=== PATIENT | female | born 1965 | race Caucasian/White ===

== ENCOUNTER → 2018-03-06 | Outpatient (CLI) | payer OTHER | LOC: CIMAGING 15:59 | PROVIDERS: ATTEND Obstetrics & Gynecology | DX: N94.6 Dysmenorrhea, unspecified (principal); N94.89 Other specified conditions associated with female genital organs and menstrual cycle; N88.8 Other specified noninflammatory disorders of cervix uteri; Z97.5 Presence of (intrauterine) contraceptive device | CPT/HCPCS: 76856-PO ==